=== PATIENT | female | born 1990 | race Caucasian/White ===

== ENCOUNTER 2020-03-30 14:43 | Outpatient (CLI) | payer OTHER ==
[2020-03-30] MEDS ORDERED: VITAMIN C (15:10)
[2020-03-30] MEDS ORDERED: AZATHIOPRINE PO (15:10)
[2020-03-30] MEDS ORDERED: PNV (15:10)
[2020-03-30] MEDS ORDERED: NORE5TAB2 PO (15:10)
[2020-03-30] MEDS ORDERED: OMEP-110 PO (15:10)
[2020-03-30] MEDS ORDERED: DEXT5TAB17 PO (15:10)
[2020-03-30] MEDS ORDERED: FISH OIL (15:10)
== END 2020-03-30 23:59 | disposition home or self-care (01) ==
LOC: STAR 14:43
PROVIDERS: ATTEND Obstetrics & Gynecology Female Pelvic Medicine and Reconstructive Surgery
DX: Z02.9 Encounter for administrative examinations, unspecified (principal)
CPT/HCPCS: 36415; 87635

== ENCOUNTER 2020-04-03 05:42 | Day surgery (SDC) | payer OTHER ==
[~2020-04-03] VITALS: Ht 152.4 cm; Wt 68.0 kg
[~2020-04-03 05:42] MED LIST: AZATHIOPRINE PO; DEXT5TAB17 PO; FISH OIL; NORE5TAB2 PO; OMEP-110 PO; PNV; VITAMIN C
[2020-04-03 06:14] VITALS: BP 10/88
[2020-04-03] MEDS ORDERED: LACTATED RINGERS 1,000 ML IV SCH ×2 (06:30→08:30)
[2020-04-03 07:00] LABS: HCG UR SG 1.022 (1.003-1.030)
[2020-04-03] MEDS ORDERED: MIDAZOLAM 1 MG/ML, 2ML ONE (07:08)
[2020-04-03] MEDS ORDERED: FENTANYL PF 100 MCG/2ML ONE ×2 (07:08→08:59)
[2020-04-03] MEDS ORDERED: SILVER NITRATE STICK TP ONE (07:20)
[2020-04-03] MEDS ORDERED: BUPIVACAINE/PF 0.25% ONE (07:20)
[2020-04-03] MEDS ORDERED: EPINEPHRINE 1 MG/ML, 1ML ONE (07:20)
[2020-04-03] MEDS ORDERED: ONDANSETRON 2MG/ML, 2ML ONE (07:30)
[2020-04-03] MEDS ORDERED: DEXAMETHASONE 4 MG/ML, 1ML ONE (07:30)
[2020-04-03] MEDS ORDERED: CEFAZOLIN 1,000 MG ONE (07:30)
[2020-04-03] MEDS ORDERED: PROPOFOL 10 MG/ML, 20ML ONE (07:30)
[2020-04-03] MEDS ORDERED: KETOROLAC 30 MG/1 ML ONE (07:30)
[2020-04-03] MEDS ORDERED: OXYcodone 5 MG/5 ML ORAL.SOL UDC PO PRN (08:00)
[2020-04-03] MEDS ORDERED: ONDANSETRON 2MG/ML, 2ML IVPush PRN (08:00)
[2020-04-03] MEDS ORDERED: ACETAMINOPHEN 325 MG TABLET PO PRN (08:00)
[2020-04-03] MEDS ORDERED: HYDROmorphone 1 MG/ML, 1ML INJ IVPush PRN (08:00)
[2020-04-03] MEDS ORDERED: PROMETHAZINE 25 MG SUPP PR ONE ×2 (08:30→09:00)
[2020-04-03] MEDS ORDERED: IBUPROFEN 600 MG TABLET PO PRN (08:30)
[2020-04-03] MEDS ORDERED: OXYcodone/APAP 5/325MG TABLET PO PRN (08:30)
[2020-04-03] MEDS ORDERED: OXYcodone 5 MG/5 ML ORAL.SOL UDC ONE (08:59)
[2020-04-03] MEDS ORDERED: ACETAMINOPHEN 650 MG/20.3 ML UDC ONE (08:59)
[2020-04-03] MEDS: FENTANYL PF 100 MCG/2ML IV PRN ×2 (09:03→09:18)
== END 2020-04-03 10:50 | disposition home or self-care (01) ==
LOC: OUT 05:42
PROVIDERS: ATTEND Obstetrics & Gynecology Female Pelvic Medicine and Reconstructive Surgery
DX: N94.6 Dysmenorrhea, unspecified (principal); N92.3 Ovulation bleeding; F41.9 Anxiety disorder, unspecified; F32.9 Major depressive disorder, single episode, unspecified; G43.909 Migraine, unspecified, not intractable, without status migrainosus; K21.9 Gastro-esophageal reflux disease without esophagitis; M32.9 Systemic lupus erythematosus, unspecified; Z98.890 Other specified postprocedural states; Z79.899 Other long term (current) drug therapy; Z88.5 Allergy status to narcotic agent; Z88.0 Allergy status to penicillin; Z88.8 Allergy status to other drugs, medicaments and biological substances; Z20.828 Contact with and (suspected) exposure to other viral communicable diseases; Z72.89 Other problems related to lifestyle; Z87.891 Personal history of nicotine dependence
CPT/HCPCS: 58563; 81025; 87635; 88305; J0171; J0690; J1100; J1885; J2250; J2405; J2704; J3010; J3490; J7120